=== PATIENT | female | born 1980 | race Caucasian/White ===

== ENCOUNTER → 2018-05-02 | Outpatient (CLI) | payer OTHER ==
--- NOTE | 2018-05-02 16:26 | CONS ---
CONSULTATION DATE OF SERVICE: 05/02/2018 38-year-old lady has been evaluated in [facility] by [facility]. 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 HISTORY OF PRESENT ILLNESS/SLEEP-WAKE EVALUATION: Patient's usual sleep schedule from 10 to 5:00-5:30 a.m. on working days and from 10-11 pm until 6-7:00 a.m. She does have problem with falling asleep, although has TV set in bedroom. She may wake up from sleep once, but no history of nocturia. No history of hypnagogic hallucinations, sleep paralysis or cataplexy. [place] Sleepiness Scale is 7. Patient increased to weight for the last 5 years about 80 pounds. PAST MEDICAL HISTORY: Positive for iron deficiency anemia in the past. History of fibroids. PAST SURGICAL HISTORY: None. MEDICATIONS: None. SOCIAL HISTORY: Negative for smoking. Alcohol consumption occasional. FAMILY HISTORY: Stomach cancer by her mother. REVIEW OF SYSTEMS: Basically negative. PHYSICAL EXAM: GENERAL lady without distress. VITAL SIGNS BP 132/87, HR 80, RR 16, height 5 foot 3, weight 251.4, BMI 44.4, temperature 97.8, oxygen saturation on room air 100%. HEENT PERRLA, EOMI, evaluation of oropharynx showed moderately low position of soft palate, wide neck is 17 inches in circumference. NECK Supple, no JVD. Thyroid is not palpable. LUNGS Clear to percussion and to auscultation. Good air exchange. No wheezing or rhonchi. HEART S1, S2 regular. No murmurs, gallops, or rubs. ABDOMEN Obese. Soft and nontender. Bowel sounds are present. No organomegaly appreciated. EXTREMITIES No clubbing or cyanosis. 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 Cranial nerves 2 to 7 intact. There is no fasciculation or atrophy. noted. No focal deficits observed. IMPRESSION: 1. Snoring, low position of soft palate, wide neck, obesity, possible obstructive sleep apnea-hypopnea syndrome. 2. Obesity, BMI 44.4. 3. History of iron deficiency anemia. 4. History of fibroids of the uterus. PLAN: 1. Polysomnography for evaluation of patient's breathing during sleep. 2. CPAP/BiPAP titration if sleep study confirms obstructive sleep apnea-hypopnea syndrome. 3. Preferable position during sleep on the side. 4. No driving if patient feels any sleepiness. 5. I will see patient for follow up visit to explain results of testing and following plan. Thank you very much for referring this patient for consultation. Sincerely, Gildardo Brower MD, PhD, FAASM Diplomat of [place] [employer] [employer] Collector of [facility] [place] MMODL / CHETN: [id number] /
== END | disposition home or self-care (01) ==
LOC: SLEEP 14:29
PROVIDERS: ATTEND Internal Medicine
DX: R06.83 Snoring (principal); E66.9 Obesity, unspecified; D50.9 Iron deficiency anemia, unspecified; D25.9 Leiomyoma of uterus, unspecified; Z68.41 Body mass index [BMI] 40.0-44.9, adult; Z99.89 Dependence on other enabling machines and devices
CPT/HCPCS: 99211

== ENCOUNTER → 2019-06-05 | Outpatient (CLI) | payer OTHER ==
[2019-06-05 23:06] LABS: T4, Free (Free Thyroxine) 1.1 ng/dL (0.80-1.80)
[2019-06-05 23:07] LABS: T3, Uptake 28 % (23-37)
[2019-06-05 23:34] LABS: Thyroid Peroxidase Antibodies <28.0 U/mL (0.0-60.0)
== END | disposition home or self-care (01) ==
LOC: LABWHC1 16:41
PROVIDERS: ATTEND Obstetrics & Gynecology
DX: N92.1 Excessive and frequent menstruation with irregular cycle (principal)
CPT/HCPCS: 36415; 84439; 84443; 84479; 86376; 86800

== ENCOUNTER → 2019-06-19 | Outpatient (CLI) | payer OTHER ==
--- NOTE | 2019-06-19 18:03 | US ---
EXAMINATION TYPE: US pelvic complete DATE OF EXAM: 06/19/2019 COMPARISON: NONE CLINICAL HISTORY: N92.1 MENORRHAGIA WITH IRREGULAR CYCLES. Symptoms x years; C Section; tubal ligatio n; TECHNIQUE: Transabdominal (TA). Transabdominal sonographic images of the pelvis were acquired. Date of LMP: 06/10/2019 EXAM MEASUREMENTS: Uterus: 16.7 x 9.5 x 8.7 cm Endometrial Stripe: not well seen Right Ovary: 2.9 x 2.8 x 1.5 cm Left Ovary: 2.2 x 2.2 x 1.7 cm 1. Uterus: Anteverted; enlarged; heterogeneous appearance; multiple uterine fibroids with largest hy perechoic fibroid upper uterus = 4.3 x 3.7 x 4.0cm 2. Endometrium: not seen with heterogeneous uterus 3. Right Ovary: multiple follicles with largest = 1.6 x 1.4 x 1.2cm 4. Left Ovary: multiple small follicles 5. Bilateral Adnexa: wnl 6. Posterior cul-de-sac: wnl IMPRESSION: 1. Left ovarian cyst. Follow-up can be performed in 6 weeks to confirm resolution.
== END | disposition home or self-care (01) ==
LOC: RADUSWWP 13:18
PROVIDERS: ATTEND Obstetrics & Gynecology
DX: N83.202 Unspecified ovarian cyst, left side (principal); N92.1 Excessive and frequent menstruation with irregular cycle
CPT/HCPCS: 76856

== ENCOUNTER → 2019-09-10 | Outpatient (CLI) | payer OTHER ==
[2019-09-10 15:39] LABS: Basophils # (A) 0.1 k/uL (0-0.2); Basophils % (A) 1 %; Eosinophils # (A) 0.2 k/uL (0-0.7); Eosinophils % (A) 3 %; HCT 31.6 % (34.0-46.0); HGB 9.5 gm/dL (11.4-16.0); Hypochromasia Marked; Lymphocytes % (A) 22 %; MCH 22.9 pg (25.0-35.0); MCHC 30.2 g/dL (31.0-37.0); MCV 75.9 fL (80.0-100.0); Mean Platelet Volume 5.6; Microcytosis Slight; Monocytes # (A) 0.4 k/uL (0-1.0); Monocytes % (A) 5 %; Neutrophils # (A) 6.3 k/uL (1.3-7.7); Neutrophils % (A) 69 %; Platelet Count 402 k/uL (150-450); Poikilocytosis Slight; RBC 4.16 m/uL (3.80-5.40); RDW 14.2 % (11.5-15.5); WBC 9.1 k/uL (3.8-10.6)
== END | disposition home or self-care (01) ==
LOC: LABWHC1 15:06
PROVIDERS: ATTEND Obstetrics & Gynecology
DX: Z01.812 Encounter for preprocedural laboratory examination (principal)
CPT/HCPCS: 36415; 85025

== ENCOUNTER → 2019-09-11 | Outpatient (CLI) | payer OTHER ==
[2019-09-11 11:46] LABS: African American GFR (CKD) >90 (>60 ml/min/1.73 sqM); Anion Gap 7 mmol/L; Blood Urea Nitrogen 12 mg/dL (7-17); Calcium 8.7 mg/dL (8.4-10.2); Carbon Dioxide 25 mmol/L (22-30); Chloride 107 mmol/L (98-107); Glucose 99 mg/dL (74-99); Non-African American GFR(CKD) >90 (>60 ml/min/1.73 sqM); Potassium 4.8 mmol/L (3.5-5.1); Sodium 139 mmol/L (137-145)
== END ==
LOC: LABPAT 11:01
PROVIDERS: ATTEND Obstetrics & Gynecology
DX: Z01.812 Encounter for preprocedural laboratory examination (principal)
CPT/HCPCS: 36415; 80048

== ENCOUNTER 2019-09-12 05:45 | Observation (INO) | payer OTHER ==
--- NOTE | 2019-09-11 16:22 | P.HPOB ---
History of Present Illness H&P Date: 09/11/19 Chief Complaint: Menorrhagia 39 year old presents for total laparoscopic hysterectomy with da antwan possible total abdominal hysterectomy and diagnostic cystoscopy. Review of Systems All systems: negative Constitutional: Denies chills, Denies fever Eyes: denies blurred vision, denies pain Ears, nose, mouth and throat: Denies headache, Denies sore throat Cardiovascular: Denies chest pain, Denies shortness of breath Respiratory: Denies cough Gastrointestinal: Denies abdominal pain, Denies diarrhea, Denies nausea, Denies vomiting Genitourinary: Denies dysuria, Denies hematuria Musculoskeletal: Denies myalgias Integumentary: Denies pruritus, Denies rash Neurological: Denies numbness, Denies weakness Psychiatric: Denies anxiety, Denies depression Endocrine: Denies fatigue, Denies weight change Past Medical History Additional Past Medical History / Comment(s): FIBROID UTERUS. History of Any Multi-Drug Resistant Organisms: None Reported Past Surgical History: Section, Tubal Ligation Additional Past Surgical History / Comment(s): MENISCUS REPAIR RIGHT KNEE @ [facility]. Past Anesthesia/Blood Transfusion Reactions: No Reported Reaction Additional Past Anesthesia/Blood Transfusion Reaction / Comment(s): HAS HAD BLOOD TRANSFUSIONS IN THE PAST WITHOUT REACTION. Past Psychological History: No Psychological Hx Reported Smoking Status: Never smoker Past Alcohol Use History: Occasional Past Drug Use History: None Reported - Past Family History Mother Family Medical History: Cancer Additional Family Medical History / Comment(s): GASTROINTESTINAL CANCER Medications and Allergies Home Medications Medication Instructions Recorded Confirmed Type Acetaminophen Tab [Tylenol] 325 - 650 mg PO Q6H PRN 09/10/19 09/10/19 History Ferrous Sulfate [Iron (65 MG 1 tab PO DAILY 09/10/19 09/10/19 History Elemental)] Allergies Allergy/AdvReac Type Severity Reaction Status Date / Time No Known Allergies Allergy Verified 09/10/19 12:36 Exam Osteopathic Statement: *. No significant issues noted on an osteopathic structural exam other than those noted in the History and Physical/Consult. HEart: RRR Lungs: CTAB Abdomen: soft, nontender Extremeties: neg onesimo's Assessment and Plan (1) Menorrhagia Status: Acute Code(s): N92.0 - EXCESSIVE AND FREQUENT MENSTRUATION WITH REGULAR CYCLE SNOMED Code(s): 378319552 (2) Fibroid uterus Status: Acute Code(s): D25.9 - LEIOMYOMA OF UTERUS, UNSPECIFIED SNOMED Code(s): 63676931 Plan: 1. total laparoscopic hysterectomy with da antwan, possible total abdominal hysterectomy and diagnsotic cystoscopy.
[~2019-09-12 05:45] MED LIST: DEXAMETHASONE SOD PHOSPHATE 10 MG/ML 1 ML VIAL IV ONE; HYDROmorphone 0.5 MG/0.5 ML SYRINGE IVP PRN; LACTATED RINGERS 1,000 ML IV SCH; LIDOCAINE 1% 20 ML VIAL (10MG/ML) FOR IV START INTRADERMA PRN; ONDANSETRON 4 MG/2 ML VIAL IVP ONE
[2019-09-12] MEDS ORDERED: MIDAZOLAM 2 MG/2 ML VIAL IV ONE (06:50)
[2019-09-12] MEDS ORDERED: KETOROLAC 30 MG/ML 1 ML VIAL ONE (07:24)
[2019-09-12] MEDS ORDERED: NEOSTIGMINE 1 MG/ML 10 ML VIAL ONE (07:24)
[2019-09-12] MEDS ORDERED: LIDOCAINE 1% INJ 10MG/ML (20 ML MDV) ONE (07:24)
[2019-09-12] MEDS ORDERED: ESMOLOL 100 MG/10 ML VIAL ONE (07:24)
[2019-09-12] MEDS ORDERED: MIDAZOLAM 2 MG/2 ML VIAL ONE (07:24)
[2019-09-12] MEDS ORDERED: HEPARIN SODIUM,PORCINE 5,000 UNIT/ML 1 ML VIAL ONE (07:24)
[2019-09-12] MEDS ORDERED: HYDROmorphone (PF) 1 MG/ML ONE (07:24)
[2019-09-12] MEDS ORDERED: fentaNYL (PF) 50 MCG/ML 2 ML AMP ONE (07:24)
[2019-09-12] MEDS ORDERED: SUCCINYLCHOLINE CHLORIDE 100 MG/5 ML SYR IV ONE (07:24)
[2019-09-12] MEDS ORDERED: PROPOFOL 10 MG/ML 20 ML VIAL IV ONE (07:24)
[2019-09-12] MEDS ORDERED: diphenhydrAMINE 50 MG/ML 1 ML VIAL ONE (07:24)
[2019-09-12] MEDS ORDERED: ROCURONIUM BROMIDE 10 MG/ML 10 ML VIAL IV ONE (07:24)
[2019-09-12] MEDS ORDERED: GLYCOPYRROLATE 0.2 MG/ML 2 ML VIAL ONE (07:24)
[2019-09-12] MEDS ORDERED: BUPIVACAINE (PF) 0.25% 30 ML VIAL SQ ONE (07:29)
[2019-09-12] MEDS ORDERED: LACTATED RINGERS 1,000 ML IV ONE ×2 (09:38→11:54)
--- NOTE | 2019-09-12 12:06 | P.OP ---
Date of Procedure: 09/12/19 Preoperative Diagnosis: 1. menorrhagia 2. fibroid uterus Postoperative Diagnosis: 1. menorrhagia 2. fibroid uterus Procedure(s) Performed: Total laparoscopic hysterectomy with da Kim and diagnostic cystoscopy Anesthesia: MICKEY Surgeon: Rianna Henderson Staffing Associate #1: Jaime Guzman Estimated Blood Loss (ml): 50 IV fluids (ml): 800 Urine output (ml): 200 Pathology: other (Uterus and cervix) Condition: stable Disposition: PACU Operative Findings: Enlarged fibroid uterus, normal tubes and ovaries Description of Procedure: Patient taken the operating room where general anesthesia was obtained without difficulty. She is prepped and draped in normal sterile fashion dorsal lithotomy position, legs placed in the Brian stirrups. Weighted speculum placed in the vagina and the anterior lip the cervix was grasped with single-tooth tenaculum. The uterus sounded to 15 cm and the cervix diameter was 3.5 cm. The appropriate manipulator tip and ring were placed on the Debra manipulator. The Debra manipulator was then placed in the uterus. Raymond catheter was also placed. Attention was then turned to the abdomen and gloves were changed. A 5 mm supraumbilical incision was made the scalpel and a 5 mm optical trocar was placed under direct visualization. 10 cm to the right of this and 2 cm down a 5 mm incision was made and 8 mm da Kim port was placed under direct visualiza tion. Same measurements on the opposite side of the patient's abdomen, the 5 mm incision was made and 8 mm da Kim port was placed under direct visualization. In the left upper quadrant a 10 mm incision was made and a 10 mm optical trocar was placed under direct visualization. The 5 mm optical trocar was then replaced with the 8 mm da Kim camera port. The robot was docked on patient's right side. The camera was introduced and then the monopolar curved scissor and [place] bipolar placed under direct visualization. I broke scrub and went to the physician console. Survey of the pelvis revealed an enlarged fibroid uterus. Normal ovaries and normal fallopian tubes except the Filshie clips present on the fallopian tubes. The left utero-ovarian ligament was cauterized with the [place] bipolar and cut with monopolar curved scissors. The left round ligament was cauterized with the [place] bipolar and cut with monopolar curved scissors. The posterior leaf of the broad ligament was taken down using the monopolar curved scissors. Anterior leaf of the broad ligament was then taken down using the monopolar curved scissors. The uterine artery was cauterized with the [place] bipolar and cut with monopolar curved scissors. The bladder flap was then started using the monopolar curved scissors. Attention was then turned to the right side of the patient's anatomy and the right utero-ovarian ligament was cauterized with the [place] bipolar and cut with monopolar curved scissors. The right round ligament was cauterized with the [place] bipolar and cut with monopolar curved scissors. Posterior leaf of the broad ligament was taken down using the monopolar curved scissors and the anterior leaf was taken down using the monopolar curved scissors. The uterine artery was cauterized the [place] bipolar cut with monopolar curved scissors. The bladder flap was then finished on this side. Anterior colpotomy was made using the monopolar curved scissors. The rest of the uterus was from the vaginal cuff by following the ring around with the monopolar curved scissors through the uterosacral ligaments back to the anterior portion. Once the uterus and cervix were amputated they were attempted to be pulled through the vaginal cuff. Due to the size of the uterus it did not come out right away. An Aldo contained extraction system was introduced through the vagina. The uterus is placed into the bag and the ring was pulled out the vagina. The uterus was carefully cut into several pieces to be removed through the vagina. This took quite a bit of time. Due to this fact I did give the patient 5000 units of heparin subcutaneously. Hemostasis was assured. The instruments were changed for the Cardier forcep and the manuela suture cut. The vaginal cuff was then closed using O stratafix barbed suture in a running fashion. Hemostasis was again assured and the pelvis was irrigated. All instruments were removed from the abdomen and the robot was undocked. I scrubbed back in to perform a cystoscopy. There were jets from both ureteral orifices. The abdominal incisions were closed with 4-0 Vicryl in a subcuticular fashion. Patient tolerated the procedure well, sponge and instrument counts correct 2 and she was taken to recovery room in stable condition condition
[2019-09-12] MEDS ORDERED: METOCLOPRAMIDE 5 MG/ML 2 ML VIAL IVP PRN (12:07)
[2019-09-12] MEDS ORDERED: diphenhydrAMINE 50 MG/ML 1 ML VIAL IVP PRN (12:07)
[2019-09-12] MEDS ORDERED: ONDANSETRON 4 MG/2 ML VIAL IVP PRN (12:07)
[2019-09-12] MEDS ORDERED: Acetaminophen-Codeine 300-30mg TAB PO PRN ×2 (12:07)
[2019-09-12] MEDS ORDERED: SIMETHICONE 80 MG CHEWABLE PO PRN (12:07)
[2019-09-12] MEDS ORDERED: WITCH HAZEL 1 EACH MED..PAD TOPICAL PRN (12:09)
[2019-09-12] MEDS ORDERED: BENZOCAINE/MENTHOL SPRAY 1 GM/SPRAY AEROSOL TOPICAL PRN (12:09)
[2019-09-12] MEDS ORDERED: HYDROCORTISONE 2.5% RECTAL CREAM 30 GM TUBE RECTAL PRN (12:09)
[2019-09-12] MEDS ORDERED: HYDROmorphone 1 MG/ML 1 ML SYRINGE IVP STA (14:33)
[2019-09-12] MEDS ORDERED: HYDROmorphone PCA 10 MG/50 ML BAG IV PRN (16:24)
[2019-09-12] MEDS ORDERED: NALOXONE 0.4 MG/ML 1 ML VIAL IV PRN (16:24)
--- NOTE | 2019-09-12 17:30 | P.PN ---
Progress Note - Text Progress Note Date: 09/12/19 I was called in regards to this patient having alot of postoperative pain. She was not getting relief with Toradol and oral Tylenol #3. I ordered a REMARKETING REP and patient is feeling much better. Urine output is excellent. I talked to Taylor and she is much more comfortable at this time. Will continue to watch closely.
[2019-09-12] MEDS: SENNOSIDES-DOCUSATE SODIUM 1 EACH TAB PO SCH (21:10)
[2019-09-12] MEDS: KETOROLAC 30 MG/ML 1 ML VIAL IVP PRN (21:58)
[2019-09-13] MEDS: KETOROLAC 30 MG/ML 1 ML VIAL IVP PRN ×2 (04:04→10:11)
[2019-09-13 09:15] LABS: Basophils % (A) 0 %; Eosinophils # (A) 0.1 k/uL (0-0.7); Eosinophils % (A) 1 %; HCT 24.5 % (34.0-46.0); Hypochromasia Marked; Lymphocytes # (A) 1.9 k/uL (1.0-4.8); Lymphocytes % (A) 13 %; MCV 76.7 fL (80.0-100.0); Mean Platelet Volume 5.6; Microcytosis Slight; Monocytes # (A) 0.9 k/uL (0-1.0); Monocytes % (A) 6 %; Neutrophils % (A) 78 %; Platelet Count 339 k/uL (150-450); Poikilocytosis Slight; RBC 3.19 m/uL (3.80-5.40); RDW 14.6 % (11.5-15.5); WBC 14.2 k/uL (3.8-10.6)
[2019-09-13 09:41] LABS: HGB 7.3 gm/dL (11.4-16.0)
[2019-09-13] MEDS ORDERED: Acetaminophen-Codeine 300-30mg TAB PO PRN ×2 (10:32)
[2019-09-13] MEDS: SENNOSIDES-DOCUSATE SODIUM 1 EACH TAB PO SCH ×2 (10:50→21:36)
--- NOTE | 2019-09-13 14:10 | US ---
EXAMINATION TYPE: US kidneys/renal and bladder DATE OF EXAM: 09/13/2019 COMPARISON: NONE CLINICAL HISTORY: possible ureter injury on left, s/p hysterectomy. vaginal hysterectomy yesterday, p ain today EXAM MEASUREMENTS: Right Kidney: 10.8 x 4.8 x 4.9 cm Left Kidney: 11.1 x 5.0 x 5.4 cm Right Kidney: No hydronephrosis or masses seen Left Kidney: No hydronephrosis or masses seen Bladder: wnl mild free fluid seen adjacent to right lobe liver, mild fluid noted posterior to bladder with inter nal echoes that may represent blood Cortical medullary differentiation is maintained. IMPRESSION: There is some free fluid in Morison's pouch, cul-de-sac region.
[2019-09-13] MEDS: IBUPROFEN 600 MG TAB PO PRN ×2 (15:25→20:25)
[2019-09-13] MEDS: HYDROcodone/APAP 7.5-325MG 1 EACH TAB PO PRN ×2 (17:02→22:52)
[2019-09-14] MEDS: HYDROcodone/APAP 7.5-325MG 1 EACH TAB PO PRN (05:01)
[2019-09-14] MEDS: IBUPROFEN 600 MG TAB PO PRN (07:28)
[2019-09-14] MEDS: SENNOSIDES-DOCUSATE SODIUM 1 EACH TAB PO SCH (07:31)
[2019-09-14 08:03] VITALS: BP 133/85; PULSE 88; RESP 18; TEMP 96.1
--- NOTE | 2019-09-14 09:41 | P.DS ---
Providers Date of admission: 09/12/19 19:31 Expected date of discharge: 09/14/19 Attending physician: Rianna Henderson Primary care physician: [facility] Course: Taylor is seen and evaluated postop day 2 from a robotic-assisted laparoscopic hysterectomy. Overall she relates she is feeling much better than yesterday and her pain is well-controlled with [place]. She is requesting discharge to home today. Review of the remainder of the records show that she had a drop in her hemoglobin from 9-7.3, however she is asymptomatic. She is able to ambulate and void without difficulty and she voices no signs or symptoms of hypovolemia. Her blood pressures are normal and she is not tachycardic likely this is stable and should not require anything other than iron therapy once at home to try and more rapidly bring her hemoglobin back up to normal level. She was noted to be anemic already preoperatively at 9.3 and that is really quite large part of the reason she had a hysterectomy. She does relate that she threw up once this morning but she believes it was from the Motrin on an empty stomach and she is not think that this will be a problem going home. We did discuss not discharging today but she is adamant that she would like to go home today and she feels well enough to do so. On physical exam vital signs again are stable and afebrile. Heart regular Lungs clear to auscultation bilaterally Abdomen soft with positive bowel sounds noted and incisions are intact. Extremities are without pain. Assessment postop day 2 with anemia Plan discharged home follow up with Dr. Henderson in 3 weeks. Discharge instructions were very thoroughly reviewed with the patient and all questions were answered for her prior to her discharge. She is aware to have no heavy lifting and limited stairs and driving. She will have complete pelvic rest for the next 6-8 weeks minimum. If she should have any high temperatures, heavy bleeding, or severe pain or worsening of symptoms indicative of potential hypovolemia she will notify our office immediately or report to the emergency room. Patient Condition at Discharge: Stable Plan - Discharge Summary Discharge Rx Participant: No New Discharge Prescriptions: New Ibuprofen [Motrin] 600 mg PO Q6HR PRN #30 tab PRN Reason: Mild Discomfort Acetaminophen-Codeine 300-30mg [Tylenol w/codeine #3] 2 each PO Q6HR PRN #24 tab PRN Reason: Pain HYDROcodone/APAP 7.5-325MG [[place] 7.5-325] 1 tab PO Q4H PRN 3 Days #18 tab PRN Reason: Pain No Action Ferrous Sulfate [Iron (65 MG Elemental)] 1 tab PO DAILY Acetaminophen Tab [Tylenol] 325 - 650 mg PO Q6H PRN PRN Reason: Pain Discharge Medication List Acetaminophen Tab [Tylenol] 325 - 650 mg PO Q6H PRN 09/10/19 [History] Ferrous Sulfate [Iron (65 MG Elemental)] 1 tab PO DAILY 09/10/19 [History] Acetaminophen-Codeine 300-30mg [Tylenol w/codeine #3] 2 each PO Q6HR PRN #24 tab 09/13/19 [Rx] Ibuprofen [Motrin] 600 mg PO Q6HR PRN #30 tab 09/13/19 [Rx] HYDROcodone/APAP 7.5-325MG [[place] 7.5-325] 1 tab PO Q4H PRN 3 Days #18 tab 09/14/19 [Rx] Follow up Appointment(s)/Referral(s): Rianna Henderson DO [Doctor of Osteopathic Medicine] - 3 Weeks Patient Instructions/Handouts: Laparoscopic Hysterectomy (DC) Discharge Disposition: HOME SELF-CARE
== END 2019-09-14 10:59 | disposition home or self-care (01) ==
LOC: OR 05:45 → 4FBP 12:08 → OR 19:31
PROVIDERS: ADMIT Obstetrics & Gynecology; ATTEND Obstetrics & Gynecology
DX: D25.0 Submucous leiomyoma of uterus (principal); N92.0 Excessive and frequent menstruation with regular cycle; N80.0 Endometriosis of uterus; K21.9 Gastro-esophageal reflux disease without esophagitis; D64.9 Anemia, unspecified; Z79.899 Other long term (current) drug therapy; Z80.0 Family history of malignant neoplasm of digestive organs
CPT/HCPCS: 58572; S2900; 76770; 81025; 85025; 86850; 86900; 86901; 88307